=== PATIENT | female | born 1965 | race Caucasian/White ===

== ENCOUNTER 2019-10-15 10:07 | Emergency (ER) | payer OTHER, BC ==
--- NOTE | 2019-10-15 10:58 | ED ---
Lower Extremity - HPI Summary HPI Summary: 54-year-old female presents to the emergency department today with chief complaint of 8/10 pain to the right lower extremity for approximately 6 days. Patient states it is a "muscle cramp feeling" in the right gluteus muscle, hamstring, calf. Patient states began after she took a long run after a long period of inactivity approximately 6 days ago. Patient states she has been taking ibuprofen for pain relief which is not working. Patient believes her symptoms are made worse while lying down and resting. Patient denies recent surgery, immobilization, past medical history of blood clots. Patient is otherwise well and denies fevers, chest pain, abdominal pain, nausea, vomiting, diarrhea, rash. Patient denies history of trauma. Patient has full range of motion and is able to ambulate. - History of Current Complaint Chief Complaint: EDHipPelvisInjury Stated Complaint: RIGHT LEG PAIN PER PT Time Seen by Provider: 10/15/19 10:22 Hx Obtained From: Patient Onset of Pain: Prior to Arrival Onset/Duration: Days Severity Initially: Severe Severity Currently: Severe Pain Intensity: 10 Pain Scale Used: 0-10 Numeric Timing: Constant Associated Signs And Symptoms: Negative: Swelling, Redness, Bruising, Fever Able to Bear Weight: Yes - Allergies/Home Medications Allergies/Adverse Reactions: Allergies Allergy/AdvReac Type Severity Reaction Status Date / Time pinapple Allergy Airway Uncoded 10/15/19 10:14 Obstruction Home Medications: Home Medications Acetaminophen TAB* [Tylenol TAB*] 325 mg PO Q4H PRN 10/15/19 [History Confirmed 10/15/19] Cyclobenzaprine TAB* [Flexeril 10 MG TAB*] 10 mg PO TID PRN #12 tab 10/15/19 [Rx ] Estradiol [Chelsy] 1 each TRANSDERM . DIRECTED 10/15/19 [History Confirmed ] Naproxen TAB* [Naprosyn 250 mg TAB*] 250 mg PO Q8H PRN 10/15/19 [History Confirmed 10/15/19] PMH/Surg Hx/FS Hx/Imm Hx Infectious Disease History: No Infectious Disease History: Denies: Traveled Outside the [place] in Last 30 Days - Social History Alcohol Use: Rare Substance Use Type: Reports: None Smoking Status (MU): Never Smoked Tobacco Review of Systems Constitutional: Negative Eyes: Negative ENT: Negative Cardiovascular: Negative Respiratory: Negative Gastrointestinal: Negative Genitourinary: Negative Musculoskeletal: Negative Skin: Negative Neurological/Mental Status: Negative Psychological: Normal All Other Systems Reviewed And Are Negative: Yes Physical Exam - Summary Physical Exam Summary: Patient is in no acute distress. There is no evidence of obvious deformity, ecchymosis, edema, erythema. Patient has full passive range of motion of the right lower extremity 5 out 5 strength and is neurovascularly intact. Patient has pain with palpation of the IT band of the right lower extremity. Patient has no crepitus of the hip joint. Triage Information Reviewed: Yes Vital Signs On Initial Exam: Initial Vitals Temp Pulse Resp BP Pulse Ox 98.4 F 82 19 127/66 100 10/15/19 10:11 10/15/19 10:11 10/15/19 10:11 10/15/19 10:11 10/15/19 10:11 Vital Signs Reviewed: Yes Appearance: Positive: Well-Appearing, No Pain Distress, Well-Nourished Skin: Positive: Warm, Skin Color Reflects Adequate Perfusion Eyes: Positive: EOMI, [place] ENT: Positive: Hearing grossly normal Respiratory/Lung Sounds: Positive: Clear to Auscultation, Breath Sounds Present Cardiovascular: Positive: RRR, S1, S2 Musculoskeletal: Positive: Strength/ROM Intact Neurological: Positive: Sensory/Motor Intact, Alert, Oriented to Person Place, Time, Facial Symmetry, Speech Normal. Negative: Normal Gait - antalgic Psychiatric: Positive: Normal, Affect/Mood Appropriate AVPU Assessment: Alert Procedures - Sedation Patient Received Moderate/Deep Sedation with Procedure: No Diagnostics - Vital Signs Vital Signs Temp Pulse Resp BP Pulse Ox 10/15/19 10:11 98.4 F 82 19 127/66 100 - Laboratory Lab Statement: Any lab studies that have been ordered have been reviewed, and results considered in the medical decision making process. Lower Extremity Course/Dx - Course Course Of Treatment: Patient was evaluated in the emergency room today for right lower extremity pain. History and physical is consistent with musculoskeletal pain such as muscle strain. No evidence of DVT including no swelling, ecchymosis, calf pain. Imaging was deemed unnecessary. Patient had an unremarkable physical exam with only mild tenderness with palpation of the right IT band. Patient was given prescription for Flexeril and discharged outpatient follow-up with muscle strain. - Diagnoses Differential Diagnosis/HQI/PQRI: Positive: Arthritis, DVT, Fracture (Closed), Sprain, Strain Provider Diagnoses: Right leg pain - Critical Care Time Critical Care Statement: Critical care time is provided exclusive of any time spent performing procedures. Discharge ED - Sign-Out/Discharge Documenting (check all that apply): Patient Departure - Discharge Plan Condition: Stable Disposition: HOME Prescriptions: Cyclobenzaprine TAB* [Flexeril 10 MG TAB*] 10 mg PO TID PRN #12 tab PRN Reason: Pain - Moderate Patient Education Materials: Leg Pain (ED) Referrals: Nicole Yung MD [Primary Care Provider] - 3 Days Additional Instructions: Please take Flexeril as directed. Please do not drive while taking this medication. Please take ibuprofen 600 mg every 6 hours as needed for pain. Please apply heat to the area for relief of your sore muscles and be sure to increase activity. Please follow-up with your primary care provider for further evaluation and management. Please return to this emergency department immediately should you develop any new or worsening symptoms. - Billing Disposition and Condition Condition: STABLE Disposition: Home - Attestation Statements Provider Attestation: I was available for consultation for this patient. I did not evaluate the patient or participate in any medical decision making or disposition decisions unless I am specifically named in the chart as having consulted on the patient. If I have consulted on the patient, please see my own ED note on the patient encounter. Oziel Delgado MD
[2019-10-15] MEDS ORDERED: Ibuprofen TAB* 800 MG PO ONE (11:34)
[2019-10-15 11:46] VITALS: BP 127/77
== END 2019-10-15 11:45 | disposition home or self-care (01) ==
LOC: ED 10:07
DX: M79.604 Pain in right leg (principal); R20.0 Anesthesia of skin
CPT/HCPCS: 99282; A9270-GY